=== PATIENT | female | born 1985 | race Caucasian/White ===

== ENCOUNTER 2018-12-01 12:46 | Inpatient (IN) | payer MEDICAID ==
[~2018-12-01] VITALS: Ht 170.2 cm; Wt 86.9 kg
[2018-12-01] MEDS ORDERED: SODIUM CHLORIDE 0.9% 1,000 ML IV ONE (13:13)
[2018-12-01] MEDS ORDERED: IBUPROFEN 600MG TABLET PO STA (13:13)
[2018-12-01 13:59] LABS: CHLORIDE 106 mEq/L (98-107)
[2018-12-01 14:02] LABS: BASOPHILS % 0.9 % (0.0-2.0); EOSINOPHILS % 0.1 % (0.0-5.0); HEMATOCRIT. 35.7 % (36.0-48.0); HEMOGLOBIN. 11.8 g/dL (12.0-16.0); LYMPHOCYTES % 13.9 % (20.0-50.0); MEAN CORPUSCULAR HEMOGLOBIN 25.5 pg (28.0-32.0); MEAN CORPUSCULAR VOLUME 77.6 fL (81.0-99.0); NEUTROPHILS % 79.1 % (40.0-76.0); RED BLOOD CELL COUNT 4.61 mill/uL (4.2-5.4); RED CELL DISTRIBUTION WIDTH 17.3 % (11.6-14.6)
[2018-12-01 14:03] LABS: ETHANOL BLOOD < 10 mg/dL
[2018-12-01 14:10] LABS: CLARITY URINE CLEAR (CLEAR); COLOR URINE YELLOW (YELLOW); KETONES URINE TRACE (NEGATIVE); LEUKOCYTE ESTERASE URINE 1+ (NEGATIVE); NITRITE URINE POSITIVE (NEGATIVE); OCCULT BLOOD URINE NEGATIVE (NEGATIVE); PH URINE 8.5 (4.5-8.0); PROTEIN URINE NEGATIVE (NEGATIVE); SPECIFIC GRAVITY URINE 1.005 (1.005-1.030); UROBILINOGEN URINE 0.2 E.U./dL (0.2-1.0)
[2018-12-01 14:48] LABS: *BARBITURATES SCREEN URINE NEGATIVE (NEGATIVE); *BENZODIAZEPINES SCREEN URINE NEGATIVE (NEGATIVE); *COCAINE SCREEN URINE NEGATIVE (NEGATIVE); METHADONE URINE SCREEN NEGATIVE (NEGATIVE); OPIATES URINE SCREEN NEGATIVE (NEGATIVE)
[2018-12-01 14:49] LABS: PHENCYCLIDINE URINE SCREEN NEGATIVE (NEGATIVE)
[2018-12-01 14:52] LABS: MEAN PLATELET VOLUME 8.7 fl (7.4-10.4); PLATELET 192 x1000/uL (130-400)
[2018-12-01 14:58] LABS: *AMPHETAMINES SCREEN URINE PRESUMTIVE POSITIVE (NEGATIVE); CANNABINOID URINE SCREEN NEGATIVE (NEGATIVE)
[2018-12-01] MEDS ORDERED: CEFTRIAXONE 1 G PREMIX 50 ML IV ONE (15:00)
[2018-12-01] MEDS ORDERED: DIPHENHYDRAMINE 50MG CAPSULE PO ONE (18:00)
[2018-12-01] MEDS ORDERED: IBUPROFEN 600MG TABLET PO ONE (18:45)
[2018-12-01] MEDS ORDERED: LORAZEPAM 2MG/ML CPJ IV ONE ×2 (20:00→20:30)
[2018-12-01] MEDS ORDERED: HALOPERIDOL LACTATE 5MG/ML VIAL IM STA (20:21)
[2018-12-01] MEDS ORDERED: DIPHENHYDRAMINE 50MG/ML VIAL IM STA (20:21)
[2018-12-02 06:20] VITALS: BP 104/60
[2018-12-02 06:30] VITALS: BP 104/60
[2018-12-02] MEDS ORDERED: ONDANSETRON HCL 4MG/2ML INJ IV PRN (06:30)
[2018-12-02] MEDS ORDERED: ACETAMINOPHEN 325MG TABLET PO PRN (06:30)
[2018-12-02] MEDS ORDERED: DIPHENHYDRAMINE 50MG/ML VIAL IV PRN (06:30)
[2018-12-02] MEDS ORDERED: LORAZEPAM 2MG/ML CPJ IV PRN (06:30)
[2018-12-02] MEDS: FAMOTIDINE 20MG TABLET PO SCH ×2 (09:27→21:08)
[2018-12-02 12:00] VITALS: BP 101/53
[2018-12-02] MEDS ORDERED: CEFTRIAXONE 1 G PREMIX 50 ML IV SCH (15:00)
[2018-12-02 16:00] VITALS: BP 106/62
[2018-12-02 20:00] VITALS: BP 92/45
[2018-12-02] MEDS: LEVETIRACETAM 500MG TABLET PO SCH (21:08)
[2018-12-03] VITALS: BP 97/54
[2018-12-03 04:08] VITALS: BP 97/53
[2018-12-03 06:48] LABS: BASOPHILS % 0.4 % (0.0-2.0); EOSINOPHILS % 1.4 % (0.0-5.0); HEMOGLOBIN. 11.8 g/dL (12.0-16.0); LYMPHOCYTES % 42.7 % (20.0-50.0); MEAN CORPUSCULAR HEMOGLOBIN 25.7 pg (28.0-32.0); MEAN CORPUSCULAR VOLUME 78.3 fL (81.0-99.0); MEAN PLATELET VOLUME 7.6 fl (7.4-10.4); MONOCYTES % 9.9 % (2.0-8.0); NEUTROPHILS % 45.6 % (40.0-76.0); PLATELET 196 x1000/uL (130-400); RED BLOOD CELL COUNT 4.59 mill/uL (4.2-5.4); RED CELL DISTRIBUTION WIDTH 17.3 % (11.6-14.6)
[2018-12-03 06:56] LABS: CHLORIDE 107 mEq/L (98-107)
[2018-12-03 07:54] VITALS: BP 89/42
[2018-12-03] MEDS: LEVETIRACETAM 500MG TABLET PO SCH (09:51)
[2018-12-03] MEDS: FAMOTIDINE 20MG TABLET PO SCH (09:51)
[2018-12-03 11:56] VITALS: BP 106/62
[2018-12-03 13:14] VITALS: BP 125/75
== END 2018-12-03 14:53 | disposition home or self-care (01) | DRG 52 ==
LOC: ER 12:46 → ENRESERV 21:01 → 6WST 22:23 → CANBEDREQ 23:21 → CANRESERV 23:25 → ENRESERV 23:25
PROVIDERS: ADMIT Internal Medicine; ATTEND Internal Medicine
DX: G93.41 Metabolic encephalopathy (principal); Z78.1 Physical restraint status; F15.90 Other stimulant use, unspecified, uncomplicated; G40.909 Epilepsy, unspecified, not intractable, without status epilepticus; N39.0 Urinary tract infection, site not specified; Z59.0 Homelessness
CPT/HCPCS: 36415; 71045; 80048; 80305; 80320; 82140; 82962; 93005; 96361; 96365; 96375; 99285; J0696; J1200; J1630; J2060; J7030; J7050; Q0163; G0480